=== PATIENT | male | born 1975 | race African-American/Black ===

== ENCOUNTER 2019-01-25 04:47 | Emergency (ER) | payer OTHER ==
[~2019-01-25] VITALS: Ht 167.6 cm; Wt 88.5 kg
--- NOTE | 2019-01-25 05:41 | PHYS DOC ---
Past Medical History Past Medical History: Hypertension Additional Past Medical Histor: Seasonal allergies (LISA PAEZ DO) Additional Past Surgical Histo: Foot (LISA PAEZ DO) Smoking: Cigarettes Alcohol Use: Occasionally Drug Use: None (LISA PAEZ DO) Adult General Chief Complaint Chief Complaint: DIZZY/LIGHT HEADED HPI HPI Patient is a 43 year old male who presents with nausea and vomit. Pt reports having these symptoms for about 1.5 half and its got worse. Pt also reports some dry cough, SOB and lightheadedness. He believes that these symptoms are caused by the mold on the wall in his current apt and he has to wear mask inside to get some relieve. He reports having multiple bouts of vomits since the onset of his symptom. He appears anxious about having some illness due to the mold. He moved up here from [place] for a job at [employer]. Pt also endorses encounter a lot of dirts at work. (LISA PAEZ DO) Review of Systems Review of Systems Constitutional: Positive fever. No chills Eyes: Denies redness or eye pain HENT: Denies nasal congestion or sore throat Respiratory: Positive cough and shortness of breath Cardiovascular: Denies chest pain or palpitations GI: Denies abdominal pain, nausea, or vomiting : Denies dysuria or hematuria Musculoskeletal: Denies back pain or joint pain Integument: Denies rash or skin lesions Neurologic: Denies headache, focal weakness or sensory changes, reports dizziness Complete systems were reviewed and found to be within normal limits, except as documented in this note. (LISA PAEZ DO) Current Medications Current Medications Current Medications Medications (Trade) Dose Ordered Sig/Viviana Start Time Stop Time Status Last Admin Dose Admin Dexamethasone Sodium Phosphate (Decadron) 10 mg 1X ONCE 01/25/19 06:00 01/25/19 06:01 DC 01/25/19 06:16 10 MG Sodium Chloride 1,000 ml @ 1,000 mls/hr 1X ONCE 01/25/19 06:00 01/25/19 06:59 DC 01/25/19 06:16 1,000 MLS/HR (RAJESH MARISCAL MD) Allergies Allergies Allergies Coded Allergies Type Severity Reaction Last Updated Verified No Known Drug Allergies 01/25/19 No (RAJESH MARISCAL MD) Physical Exam Physical Exam Constitutional: Well developed, well nourished, no acute distress, non-toxic appearance HENT: Normocephalic, atraumatic, oropharynx moist Eyes: PERRL, EOMI, conjunctiva normal, no discharge Neck: Normal range of motion, no tenderness, supple Cardiovascular: Heart rate normal, regular rhythm Lungs & Thorax: Bilateral breath sounds clear to auscultation, no wheezing Abdomen: Soft, no tenderness Skin: Warm, dry, no erythema, no rash Back: No tenderness, no CVA tenderness Extremities: No tenderness, ROM intact, no edema Neurologic: Alert and oriented X 3, normal motor function, normal sensory function, no focal deficits noted Psychologic: Affect normal, judgement normal, mood normal (LISA PAEZ DO) Current Patient Data Vital Signs Vital Signs Date Time Temp Pulse Resp B/P (MAP) Pulse Ox O2 Delivery O2 Flow Rate FiO2 01/25/19 06:41 65 96 01/25/19 05:07 98.4 17 137/85 (102) Room Air 98.4 (RAJESH MARISCAL MD) Lab Values Laboratory Tests Test 01/25/19 05:38 White Blood Count 7.3 x10^3/uL (4.0-11.0) Red Blood Count 4.82 x10^6/uL (4.30-5.70) Hemoglobin 14.2 g/dL (13.0-17.5) Hematocrit 42.7 % (39.0-53.0) Mean Corpuscular Volume 89 fL (79-100) Mean Corpuscular Hemoglobin 30 pg (25-35) Mean Corpuscular Hemoglobin Concent 33 g/dL (31-37) Red Cell Distribution Width 14.0 % (11.5-14.5) Platelet Count 263 x10^3/uL (140-400) Neutrophils (%) (Auto) 56 % (31-73) Lymphocytes (%) (Auto) 32 % (24-48) Monocytes (%) (Auto) 8 % (0-9) Eosinophils (%) (Auto) 3 % (0-3) Basophils (%) (Auto) 1 % (0-3) Neutrophils # (Auto) 4.1 x10^3/uL (1.8-7.7) Lymphocytes # (Auto) 2.3 x10^3/uL (1.0-4.8) Monocytes # (Auto) 0.6 x10^3/uL (0.0-1.1) Eosinophils # (Auto) 0.2 x10^3/uL (0.0-0.7) Basophils # (Auto) 0.1 x10^3/uL (0.0-0.2) Sodium Level 141 mmol/L (136-145) Potassium Level 3.6 mmol/L (3.5-5.1) Chloride Level 102 mmol/L (98-107) Carbon Dioxide Level 26 mmol/L (21-32) Anion Gap 13 (6-14) Blood Urea Nitrogen 21 mg/dL (8-26) Creatinine 1.4 mg/dL (0.7-1.3) H Estimated GFR (Cockcroft-Gault) 67.2 BUN/Creatinine Ratio 15 (6-20) Glucose Level 98 mg/dL (70-99) Calcium Level 9.6 mg/dL (8.5-10.1) Magnesium Level 2.0 mg/dL (1.8-2.4) Total Bilirubin 0.7 mg/dL (0.2-1.0) Aspartate Amino Transferase (AST) 49 U/L (15-37) H Alanine Aminotransferase (ALT) 53 U/L (16-63) Alkaline Phosphatase 40 U/L (46-116) L Creatine Kinase 1972 U/L (39-308) H Creatine Kinase MB (Mass) 8.2 ng/mL (0.0-3.6) H Creatine Kinase MB Relative Index 0.4 % (0-4) Troponin I Quantitative < 0.017 ng/mL (0.000-0.055) Total Protein 8.1 g/dL (6.4-8.2) Albumin 4.4 g/dL (3.4-5.0) Albumin/Globulin Ratio 1.2 (1.0-1.7) Lipase 124 U/L (73-393) Laboratory Tests 01/25/19 05:38 Laboratory Tests 01/25/19 05:38 (RAJESH MARISCAL MD) Lab Values Laboratory Tests Test 01/25/19 05:38 White Blood Count 7.3 x10^3/uL (4.0-11.0) Red Blood Count 4.82 x10^6/uL (4.30-5.70) Hemoglobin 14.2 g/dL (13.0-17.5) Hematocrit 42.7 % (39.0-53.0) Mean Corpuscular Volume 89 fL (79-100) Mean Corpuscular Hemoglobin 30 pg (25-35) Mean Corpuscular Hemoglobin Concent 33 g/dL (31-37) Red Cell Distribution Width 14.0 % (11.5-14.5) Platelet Count 263 x10^3/uL (140-400) Neutrophils (%) (Auto) 56 % (31-73) Lymphocytes (%) (Auto) 32 % (24-48) Monocytes (%) (Auto) 8 % (0-9) Eosinophils (%) (Auto) 3 % (0-3) Basophils (%) (Auto) 1 % (0-3) Neutrophils # (Auto) 4.1 x10^3/uL (1.8-7.7) Lymphocytes # (Auto) 2.3 x10^3/uL (1.0-4.8) Monocytes # (Auto) 0.6 x10^3/uL (0.0-1.1) Eosinophils # (Auto) 0.2 x10^3/uL (0.0-0.7) Basophils # (Auto) 0.1 x10^3/uL (0.0-0.2) Sodium Level 141 mmol/L (136-145) Potassium Level 3.6 mmol/L (3.5-5.1) Chloride Level 102 mmol/L (98-107) Carbon Dioxide Level 26 mmol/L (21-32) Anion Gap 13 (6-14) Blood Urea Nitrogen 21 mg/dL (8-26) Creatinine 1.4 mg/dL (0.7-1.3) H Estimated GFR (Cockcroft-Gault) 67.2 BUN/Creatinine Ratio 15 (6-20) Glucose Level 98 mg/dL (70-99) Calcium Level 9.6 mg/dL (8.5-10.1) Magnesium Level 2.0 mg/dL (1.8-2.4) Total Bilirubin 0.7 mg/dL (0.2-1.0) Aspartate Amino Transferase (AST) 49 U/L (15-37) H Alanine Aminotransferase (ALT) 53 U/L (16-63) Alkaline Phosphatase 40 U/L (46-116) L Creatine Kinase 1972 U/L (39-308) H Creatine Kinase MB (Mass) 8.2 ng/mL (0.0-3.6) H Creatine Kinase MB Relative Index 0.4 % (0-4) Troponin I Quantitative < 0.017 ng/mL (0.000-0.055) Total Protein 8.1 g/dL (6.4-8.2) Albumin 4.4 g/dL (3.4-5.0) Albumin/Globulin Ratio 1.2 (1.0-1.7) Lipase 124 U/L (73-393) Laboratory Tests 01/25/19 05:38 Laboratory Tests 01/25/19 05:38 (LISA PAEZ DO) EKG EKG @0516 NSR at 70bpm, slight st elevation noted to I and aVL likely j point elevation, no reciprocal changes., nonspecific t wave inversion III (LISA PAEZ DO) Radiology/Procedures Radiology/Procedures [] (LISA PAEZ DO) Course & Med Decision Making Course & Med Decision Making 0615- Sign out given to Dr. Mariscal for patient with report of dizziness, N/V, and cough. Patient with concern for exposure to mold. No significant wheezing noted. Labs obtained and pending. CXR pending. EKG stable. Discussed current findings and plan with patient and family, who acknowledge understanding and agreement. (LISA PAEZ DO) Dragon Disclaimer Dragon Disclaimer This electronic medical record was generated, in whole or in part, using a voice recognition dictation system. (LISA PAEZ DO) Departure Departure Impression: Primary Impression: Dizziness Additional Impressions: Cough Nausea & vomiting Rhabdomyolysis Dehydration Disposition: HOME, SELF-CARE (at 0733) Condition: STABLE Referrals: NO PCP (PCP) Patient Instructions: Cough, Adult, Dehydration, Adult, Rhabdomyolysis Additional Instructions: Drink plenty of liquids Follow-up with your primary care physician in 3-5 days Return to ER if not getting better Scripts Meclizine Hcl (MECLIZINE HCL) 25 Mg Tablet 1 TAB PO TID for dizziness, #20 TAB Prov: RAJESH MARISCAL MD 01/25/19 Albuterol Sulfate (PROAIR HFA INHALER) 8.5 Gm Hfa.aer.ad 2 PUFF INH PRN Q6HRS PRN for SHORTNESS OF BREATH, #1 INHALER 0 Refills Prov: RAJESH MARISCAL MD 01/25/19 Methylprednisolone (MEDROL) 4 Mg Tab.ds.pk 1 PKG PO UD for inflammation, #1 PKG Prov: RAJESH MARISCAL MD 01/25/19 Problem Qualifiers Additional Impressions: Nausea & vomiting Vomiting type: unspecified Vomiting Intractability: non-intractable Reji lified Codes: R11.2 - Nausea with vomiting, unspecified Rhabdomyolysis Rhabdomyolysis type: non-traumatic Qualified Codes: M62.82 - Rhabdomyol LISA Vallejo DO Jan 25, 2019 05:41 RAJESH MARISCAL MD Jan 25, 2019 07:39
[2019-01-25 05:56] LABS: BASO # 0.1 x10^3/uL (0.0-0.2); BASO % 1 % (0-3); EOS # 0.2 x10^3/uL (0.0-0.7); EOS % 3 % (0-3); HEMATOCRIT 42.7 % (39.0-53.0); HEMOGLOBIN 14.2 g/dL (13.0-17.5); LYMPH # 2.3 x10^3/uL (1.0-4.8); LYMPH % 32 % (24-48); MEAN CORPUSCULAR HEMOGLOBIN 30 pg (25-35); MEAN CORPUSCULAR HGB CONC 33 g/dL (31-37); MEAN CORPUSCULAR VOLUME 89 fL (79-100); MONO # 0.6 x10^3/uL (0.0-1.1); MONO % 8 % (0-9); NEUT # 4.1 x10^3/uL (1.8-7.7); NEUT % 56 % (31-73); PLATELET COUNT 263 x10^3/uL (140-400); RED BLOOD COUNT 4.82 x10^6/uL (4.30-5.70); WHITE BLOOD COUNT 7.3 x10^3/uL (4.0-11.0)
[2019-01-25] MEDS ORDERED: IV NORMAL SALINE 1000ML BAG 1,000 ML IV ONE (06:00)
[2019-01-25] MEDS ORDERED: DEXAMETHASONE SOD PHOS 20 MG/5 ML VIAL. IV ONE (06:00)
[2019-01-25 06:09] LABS: ALBUMIN 4.4 g/dL (3.4-5.0); ALBUMIN/GLOBULIN RATIO 1.2 (1.0-1.7); CALCIUM 9.6 mg/dL (8.5-10.1); CREATININE 1.4 mg/dL (0.7-1.3); GFR 67.2; POTASSIUM 3.6 mmol/L (3.5-5.1); TOTAL BILIRUBIN 0.7 mg/dL (0.2-1.0); TOTAL PROTEIN 8.1 g/dL (6.4-8.2)
--- NOTE | 2019-01-25 06:44 | RAD ---
PA and lateral chest. HISTORY: Dizziness PA and lateral views were taken of the chest. Lungs are clear. Heart is normal in size. There is no pleural effusion. IMPRESSION: 1. No acute chest disease. Electronically signed by: Calin James MD (01/25/2019 6:42 AM) [id number]
[2019-01-25] MEDS ORDERED: ALBU2.5V8 INH (07:39)
[2019-01-25] MEDS ORDERED: MECL25TA3 PO (07:39)
[2019-01-25] MEDS ORDERED: METH4TAB2 PO (07:39)
[2019-01-25 07:41] VITALS: BP 130/82
--- NOTE | 2019-01-25 07:42 | EKG ---
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
== END 2019-01-25 07:50 | disposition home or self-care (01) ==
LOC: EDBD 04:47 → ER 04:47 → EDSEX 04:47 → ER 07:50
DX: E86.0 Dehydration (principal); R42 Dizziness and giddiness; R11.2 Nausea with vomiting, unspecified; M62.82 Rhabdomyolysis; I10 Essential (primary) hypertension; F17.210 Nicotine dependence, cigarettes, uncomplicated
CPT/HCPCS: 36415; 71046; 80053; 82553; 83690; 83735; 84484; 85025; 93005; 96361; 96374; 99285; J1100; J7030